=== PATIENT | female | born 1985 | race Caucasian/White ===

== ENCOUNTER 2018-06-04 16:29 | Inpatient (IN) | payer OTHER ==
[~2018-06-04] VITALS: Ht 149.9 cm; Wt 3.6 kg
[2018-06-04] MEDS ORDERED: IRON18 MG PO (16:42)
[2018-06-04] MEDS ORDERED: PRENATAL + DHA1 EAC1 PO (16:42)
[2018-06-04] MEDS ORDERED: SYNTHROID75 MCG PO (16:42)
== END 2018-06-20 12:24 | disposition home or self-care (01) | DRG 785 ==
LOC: O/R 06-17 06:12 → OB/GYN 06-17 06:12
PROVIDERS: ADMIT Obstetrics & Gynecology Maternal & Fetal Medicine
PROC: 4A1HXCZ Monitoring of Products of Conception, Cardiac Rate, External Approach (ICD-10-PCS; 2018-06-17)
PROC: 0UB70ZZ Excision of Bilateral Fallopian Tubes, Open Approach (ICD-10-PCS; 2018-06-17)
PROC: 10D00Z1 Extraction of Products of Conception, Low, Open Approach (ICD-10-PCS; principal; 2018-06-17 07:00)
DX: O36.63X0 Maternal care for excessive fetal growth, third trimester, not applicable or unspecified (principal); O34.211 Maternal care for low transverse scar from previous cesarean delivery; O75.82 Onset (spontaneous) of labor after 37 completed weeks of gestation but before 39 completed weeks gestation, with delivery by (planned) cesarean section; Z3A.39 39 weeks gestation of pregnancy; Z37.0 Single live birth; Z30.2 Encounter for sterilization

== ENCOUNTER 2018-06-06 21:33 | Outpatient (CLI) | payer OTHER ==
[~2018-06-06 21:33] MED LIST: IRON18 MG PO; PRENATAL + DHA1 EAC1 PO; SYNTHROID75 MCG PO
== END 2018-06-06 22:00 | disposition home or self-care (01) ==
LOC: NST 21:33 → OBS/DEL 21:33 → NST 22:00
DX: Z34.83 Encounter for supervision of other normal pregnancy, third trimester (principal)